=== PATIENT | female | born 1985 | race Caucasian/White ===

== ENCOUNTER 2017-12-28 23:35 | Emergency (ER) | payer MEDICAID ==
[~2017-12-28] VITALS: Ht 160 cm; Wt 100.0 kg
[2017-12-28 23:41] VITALS: BP 163/94; PULSE 122; RESP 16; TEMP 98.7; O2SAT 98
[2017-12-29] MEDS ORDERED: METO25TA3 PO (01:52)
[2017-12-29] MEDS ORDERED: TETANUS/DIPHTHERIA TOXOID ADULT 0.5 ML VIAL IM ONE (02:30)
--- NOTE | 2017-12-29 02:36 | PD ---
HPI Chief Complaint: Laceration/Skin Injury Time Seen by Provider: 02:17 Travel History International Travel<30 days: No Contact w/Intl Traveler<30days: No Traveled to known affect area: No History of Present Illness HPI 32-year-old white female presents to emergency department with a laceration between her right fourth and fifth toe from stubbing her foot against the metal bed frame of the hotel bed. She has not had a tetanus shot over 5 years. Pain is mild. She sustained a laceration was concerned for sutures. She denies any numbness, tingling or weakness. Pain is minimal. PFSH Past Medical History Diminished Hearing: No Hypertension: Yes Tetanus Vaccination: > 5 Years Influenza Vaccination: No ?: Not LMP: 1 week ago Past Surgical History Section: Yes (x1) Cholecystectomy: Yes Social History Alcohol Use: No Tobacco Use: No Substance Use: No Allergies-Medications (Allergen,Severity, Reaction): Coded Allergies: No Known Allergies (Unverified , 12/28/17) Reported Meds & Prescriptions Reported Meds & Active Scripts Active Reported Metoprolol Tartrate 25 Mg Tab 25 Mg PO BID Review of Systems General / Constitutional: No: Fever Eyes: No: Visual changes HENT: No: Headaches Cardiovascular: No: Chest Pain or Discomfort Respiratory: No: Shortness of Breath Gastrointestinal: No: Abdominal Pain Genitourinary: No: Dysuria Musculoskeletal: Positive: Pain (mild), No: Myalgias, Arthralgias, Limited ROM , Weakness, Edema Skin: Positive Rash (laceration) Neurologic: No: Weakness Psychiatric: No: Depression Endocrine: No: Polydipsia Hematologic/Lymphatic: No: Easy Bruising Physical Exam Narrative GENERAL: This is a well-nourished, well-developed patient, in no apparent distress. SKIN: No rashes, ecchymoses or lesions. Warm and dry. HEAD: Atraumatic. Normocephalic. EYES: PERRL, EOMI, no discharge or injection. No scleral icterus. EARS: Clear NOSE: Nasal turbinates appear normal. THROAT: Mucosa pink and moist. Airway patent. NECK: Trachea midline. supple, moves head freely. LUNGS: Clear to auscultation. CV: Regular in rhythm. ABDOMEN: Soft nontender. EXT: No clubbing cyanosis or edema. Examination the right foot reveals a 1.2 cm laceration between the fourth and fifth toe. There is no known injury. No nerve injury. No foreign body. No active bleeding. Data Data Last Documented VS Vital Signs Date Time Temp Pulse Resp B/P (MAP) Pulse Ox O2 Delivery O2 Flow Rate FiO2 12/28/17 23:41 98.7 122 16 163/94 (117) 98 Room Air Orders Orders Tetanus/Diphtheria Tox Adult (Tetanus/Di (12/29/17 02:30) Ed Discharge Order (12/29/17 02:31) MDM Medical Decision Making Medical Screen Exam Complete: Yes Emergency Medical Condition: Yes Medical Record Reviewed: Yes Differential Diagnosis MDM: High Differential diagnoses: Fracture, sprain, strain, dislocation, contusion, neurovascular injury Narrative Course Patient's tetanus status updated. Her wound is cleansed by the nursing staff. Her fourth and fifth toe were gloria taped together. This is right foot laceration-nonsutured Diagnosis Primary Impression: right foot laceration-nonsutured Patient Instructions: General Instructions Additional Instructions: Rest. Elevation. Daily wound care with soap, water, Neosporin. Gloria tape her toes together for the next 2 weeks. Keep your foot clean and dry. Follow-up with a medical doctor in one week. Return to the ER for any problems. Med/Other Pt SpecificInfo: No Meds Exist/No RX given, Wound Care Disposition: 01 DISCHARGE HOME Condition: Hans Lewis Dec 29, 2017 02:35
== END 2017-12-29 02:44 | disposition home or self-care (01) ==
LOC: NEPD 23:35
DX: S91.311A Laceration without foreign body, right foot, initial encounter (principal); W22.03XA Walked into furniture, initial encounter; Y92.59 Other trade areas as the place of occurrence of the external cause; I10 Essential (primary) hypertension; Z23 Encounter for immunization
CPT/HCPCS: 90471; 90714